=== PATIENT | female | born 1985 | race Caucasian/White ===

== ENCOUNTER 2021-03-28 23:25 | Emergency (ER) | payer OTHER ==
[~2021-03-28 23:25] MED LIST: KEFLEX500 MG PO; PROTONIX40 MG PO; ZOFRAN ODT 4 MG4 MG PO
== END 2021-03-29 01:25 | disposition home or self-care (01) ==
LOC: ER1 23:25
DX: J06.9 Acute upper respiratory infection, unspecified (principal); F17.210 Nicotine dependence, cigarettes, uncomplicated; Z20.822 Contact with and (suspected) exposure to COVID-19
CPT/HCPCS: 99283; U0002

== ENCOUNTER 2021-04-03 19:42 | Emergency (ER) | payer OTHER ==
[2021-04-03 21:32] LABS: HEMOGLOBIN 11.8 gm/dl (12.3-15.3); RED BLOOD COUNT 4.31 M/UL (4.00-5.10); WHITE BLOOD COUNT 6.2 K/UL (4.5-11.0)
[2021-04-03 22:23] LABS: BUN/CREATININE RATIO 21 (0-10)
== END 2021-04-04 02:00 | disposition left against medical advice (07) ==
LOC: ER1 19:42
PROVIDERS: Physician Assistant
DX: U07.1 COVID-19 (principal); F17.210 Nicotine dependence, cigarettes, uncomplicated
CPT/HCPCS: 0240U; 71045; 80053; 83605; 83735; 84703; 85025; 87081; 87880; 99283